=== PATIENT | female | born 1980 | race Caucasian/White ===

== ENCOUNTER 2016-07-09 04:06 | Emergency (ER) | payer MEDICARE, MEDICAID ==
[~2016-07-09 04:06] MED LIST: ABX FOR BRONCHITIS; ATIVAN1 M1 PO; BACTRIM DS TAB1 EAC2 PO; BACTRIM DS TABL1 TAB PO; CYMBALTA60 MG PO; DURAGESIC1 EAC3 TOP; FLEXERIL10 MG PO; MARINOL5 MG PO; NORCO 5/3251 TA2 PO; OXYCODONE HCL10 M2 PO; PERCOCET 10-321 EACH PO; PHENERGAN/CODEINE; PRENATAL VITAMI1 TAB PO; PROMETHAZINE HC25 M3 PO; SEROQUEL100 M1 PO; VALIUM10 M1 PO; ZOFRAN ODT4 MG/UDTAB PO
[2016-07-09 04:54] LABS: BASO % 0.2 % (0-2); EOS % 1.5 % (0-7); EOSINOPHIL ABSOLUTE COUNT 0.2 tho/cmm (0.0-0.7); HCT-HEMATOCRIT 36.8 % (34.0-49.0); HGB-HEMOGLOBIN 12.1 gm/dl (12.0-15.5); IMMATURE GRANULOCYTES ABSOLUTE 0.02 tho/cmm (0-0.03); IMMATURE GRANULOCYTES PERCENT 0.2 % (0-0.3); LYMPH % 32.1 % (20-45); LYMPH ABSOLUTE COUNT 4.2 tho/cmm (0.8-4.5); MCH (MEAN CORPUSCULAR HGB) 28.6 pg (28.0-32.0); MCHC MEAN CORPUSCULAR HGB CONC 32.9 % (32.0-36.0); MEAN PLATELET VOLUME 9.1 cmc (9.4-12.4); MONO % 6.5 % (0-12); MONOCYTE ABSOLUTE COUNT 0.9 tho/cmm (0.0-1.2); NEUTROPHIL ABSOLUTE COUNT 7.8 tho/cmm (1.6-8.0); NEUTROPHIL-AUTOMATED 7.8 tho/cmm (1.6-8.0); NEUTROPHILS % 59.5 % (40-80); PLATELET COUNT 401 tho/cmm (150-450); RED BLOOD COUNT 4.23 mil/cmm (4.00-5.20); RED CELL DISTRIBUTION WIDTH 14.2 % (12.4-16.4)
[2016-07-09 05:04] LABS: ANION GAP 11 mmol/L (0-20); BLOOD UREA NITROGEN 5 mg/dl (6-24); CALCIUM 8.2 mg/dl (8.5-10.5); CARBON DIOXIDE-VENOUS 27 mmol/L (22-32); CHLORIDE 107 mmol/l (96-110); GLUCOSE 119 mg/dL (70-110); POTASSIUM 3.9 mmol/L (3.7-5.1); SODIUM 141 mmol/L (135-145); eGFR VALUE FOR BLACK >90 mL/Min
[2016-07-09 05:12] LABS: PREGNANCY-SERUM NEGATIVE (NEGATIVE)
[2016-07-09] MEDS ORDERED: SPACE CHAMBER1 EACH MC (05:55)
[2016-07-09] MEDS ORDERED: PROAIR HFA8.5 GM INH (05:55)
[2016-07-09] MEDS ORDERED: ZITHROMAX250 M1 PO (05:55)
[2016-07-09] MEDS ORDERED: PREDNISONE20 M1 PO (05:55)
== END 2016-07-09 06:17 ==
LOC: EDMED 04:06
PROVIDERS: Emergency Medicine
DX: J20.9 Acute bronchitis, unspecified (principal); F41.0 Panic disorder [episodic paroxysmal anxiety]; Z87.891 Personal history of nicotine dependence; Z79.899 Other long term (current) drug therapy; R11.2 Nausea with vomiting, unspecified
CPT/HCPCS: J1885; J7030